=== PATIENT | female | born 1955 | race Caucasian/White ===

== ENCOUNTER 2016-05-07 16:15 | Outpatient (RCR) | payer BC ==
[~2016-05-07 16:15] MED LIST: COSAMIN ASU 2001 CAP PO; HCTZ 25MG TAB25 MG PO; PREDNISONE10 MG PO; VASOTEC20 MG PO; ZOCOR 20MG20 MG PO; ZYRTEC 10MG10 MG PO
== END 2016-05-13 | disposition home or self-care (01) ==
LOC: WSPT
DX: M54.89 Other dorsalgia (principal)

== ENCOUNTER 2016-05-25 15:45 | Outpatient (RCR) | payer BC | END 2016-06-02 11:35 | disposition home or self-care (01) | LOC: WSPT 15:45 | DX: M54.89 Other dorsalgia (principal) ==

== ENCOUNTER → 2016-07-29 | Outpatient (CLI) | payer BC ==
[~2016-07-29] MED LIST changes: +COZAAR 50MG50 MG/TAB PO
== END ==
LOC: MC.RAD 06:59
DX: Z12.31 Encounter for screening mammogram for malignant neoplasm of breast (principal)

== ENCOUNTER 2016-08-06 07:14 | Day surgery (SDC) | payer BC ==
[~2016-08-06] VITALS: Ht 165.1 cm; Wt 91.5 kg
[~2016-08-06 07:14] MED LIST changes: -COZAAR 50MG50 MG/TAB PO
[2016-08-06] MEDS ORDERED: COZAAR 50MG50 MG/TAB PO (07:30)
[2016-08-06] MEDS ORDERED: ZYRTEC 10MG10 MG PO (07:31)
[2016-08-06 07:32] VITALS: BP 146/94; PULSE 88; TEMP 98.7
[2016-08-06 09:00] VITALS: BP 133/77; PULSE 98; TEMP 98.2
[2016-08-06 09:15] VITALS: BP 129/76; PULSE 83
[2016-08-06 10:21] VITALS: BP 102/76; PULSE 94
== END 2016-08-06 09:32 | disposition home or self-care (01) ==
LOC: SDCO 07:14
DX: Z12.11 Encounter for screening for malignant neoplasm of colon (principal); K64.1 Second degree hemorrhoids; K57.30 Diverticulosis of large intestine without perforation or abscess without bleeding; I10 Essential (primary) hypertension; E78.00 Pure hypercholesterolemia, unspecified
CPT/HCPCS: J2250; J3010; J7030

== ENCOUNTER → 2017-09-13 | Outpatient (CLI) | payer BC ==
[~2017-09-13] MED LIST changes: +COZAAR 50MG50 MG/TAB PO
== END ==
LOC: MC.RAD 07:36
DX: Z12.31 Encounter for screening mammogram for malignant neoplasm of breast (principal)

== ENCOUNTER → 2018-09-18 | Outpatient (CLI) | payer BC | LOC: MC.RAD 08:33 | DX: Z12.31 Encounter for screening mammogram for malignant neoplasm of breast (principal) ==

== ENCOUNTER → 2020-12-09 | Outpatient (CLI) | payer MEDICARE, BC | LOC: MC.RAD 07:17 | DX: Z12.31 Encounter for screening mammogram for malignant neoplasm of breast (principal) ==

== ENCOUNTER → 2021-12-15 | Outpatient (CLI) | payer MEDICARE, BC | LOC: MC.RAD 11:04 | DX: Z12.31 Encounter for screening mammogram for malignant neoplasm of breast (principal) ==

== ENCOUNTER → 2023-03-11 | Outpatient (CLI) | payer MEDICARE, BC | LOC: CANSCHCLI → MC.RAD 06:51 | DX: Z12.31 Encounter for screening mammogram for malignant neoplasm of breast (principal) ==